=== PATIENT | female | born 1995 | race Caucasian/White ===

== ENCOUNTER 2019-01-03 02:01 | Inpatient (IN) | payer OTHER ==
[2019-01-03] VITALS (8 sets, daily range): BP systolic 11–118; BP diastolic 53–78; Ht 152.4 cm; Wt 83.1 kg
[~2019-01-03] VITALS: Ht 152.4 cm; Wt 83.1 kg
--- NOTE | 2019-01-03 02:22 | NUR ---
PT C/O ROSETTE BUTTOCK PAIN X1 DAY. PT DESCRIBES PAIN 10/10 CRAMPING PAIN. PT STS THAT SHE HAD A "LIFT" DONE IN [place] X7 DAYS AGO. PT DENIES FEVER/CHILLS, N/V/D. AWAITING MSE. NAD NOTED AT THIS TIME.
--- NOTE | 2019-01-03 02:53 | NUR ---
MEDICATION ADMINISTERED PER MD ORDER FOR PAIN
[2019-01-03 03:02] LABS: BASOPHIL % 0.3 % (0-2)
[2019-01-03 03:04] LABS: CARBON DIOXIDE 28.2 mmol/L (21-32); CHLORIDE SERUM 103 mmol/L (98-107); CREATININE SERUM 0.7 mg/dL (0.6-1.0); GFR1 > 60 mL/min; GLUCOSE SERUM 97 mg/dL (74-106); POTASSIUM SERUM 3.8 mmol/L (3.5-5.1); SODIUM SERUM 142 mmol/L (136-145)
[2019-01-03 03:06] LABS: PLATELET COUNT 561 x10^3mcL (130-400)
[2019-01-03 03:09] LABS: ALBUMIN 2.3 g/dL (3.4-5.0); ALKALINE PHOSPHATASE 89 U/L (46-116); ALT/SGPT 28 U/L (14-59); AST/SGOT 13 U/L (15-37); BILIRUBIN TOTAL 0.28 mg/dL (0.20-1.00); TOTAL PROTEIN, SERUM 6.7 g/dL (6.4-8.2)
--- NOTE | 2019-01-03 03:15 | NUR ---
PT C/O PAIN AT IV SITE. IV IN R AC D/C'ED, 20G IV PLACED IN L AC BY VIELKA HOGUE
[2019-01-03 03:16] LABS: rbc morphology (normal/abnorm) ABNORMAL (NORMAL)
--- NOTE | 2019-01-03 03:35 | NUR ---
LITER BOLUS AND IV ABX STARTED PER MD ORDER
--- NOTE | 2019-01-03 04:21 | NUR ---
MEDICATION ADMINISTERED FOR PAIN PER MD ORDER
--- NOTE | 2019-01-03 04:23 | NUR ---
PT AWAKE AND ALERT, LAYING IN POSITION OF COMFORT. PT C/O 10/29 PAIN, MEDICATION ADMINISTERED PER MD ORDER. VSS, RESPS E/U, NAD NOTED AT THIS TIME. SPOUSE AT BEDSIDE. WILL CONTINUE TO MONITOR.
--- NOTE | 2019-01-03 04:30 | NUR ---
2ND NS BOLUS STARTED PER MD ORDER
--- NOTE | 2019-01-03 04:33 | NUR ---
PT TAKEN TO CT VIA BLUE
--- NOTE | 2019-01-03 05:31 | NUR ---
BLOOD TRANSFUSION STARTED AT 50ML/HR PER MD ORDER. ALISHA RN AT BEDSIDE FOR 2 RN CHECKS. WILL REMAIN AT BEDISDE TO MONITOR FOR RXN.
--- NOTE | 2019-01-03 05:48 | NUR ---
NO RXN TO BLOOD TRANSFUSION PRESENT. INCREASED RATE TO RUN OVER 1HR, 300ML/HR
[2019-01-03 06:05] LABS: microscopic required? YES; urine erythrocyte 2+ (NEGATIVE)
--- NOTE | 2019-01-03 06:16 | NUR ---
REPORT GIVEN TO BROOK HOGUE
[2019-01-03 06:18] LABS: AMPHETAMINE QUAL UR NONE DETECTED (See below)
[2019-01-03 06:27] LABS: MAGNESIUM 2.1 mg/dL (1.8-2.4)
[2019-01-03 06:34] LABS: T3 TOTAL 0.79 ng/mL
[2019-01-03 06:35] LABS: FREE T4 1.3 ng/dL (0.76-1.46); FREE THYROXINE INDEX 3.5 ug/dL (1.4-4.5); T4(THYROXINE) 9.5 ug/dL (4.7-13.3)
--- NOTE | 2019-01-03 06:45 | NUR ---
REC'D PT FROM ED VIA [facility] ACCOMPANIED BY RN AND MALE GUEST. AMBULATED FROM [facility] TO BED BY SELF. BLOOD TRANSFUSION COMPLETED. VSS BUT TACHYCARDIC. NO ADVERSE EFFECTS NOTED. NS FLUSHING @ 100 ML/HR TO LAC. RAC INFUSING NS @ 1000 ML/HR AND VANCO @ 130 ML/HR. TELE 4, ST. C/O L BUTTOCK PAIN 8/10, ACHING. S/P LIPOSUCTION WITH GLUTEAL IMPLANTS 1 WEEK AGO. ECCHYMOSIS TO ROSETTE BUTTOCKS, ROSETTE BACK OF ARMS, AND R NECK. SÁNCHEZ/ABRASIONS SCATTERED TO BACK. PICTURES OBTAINED. ORIENTED TO DEVICES AND SURROUNDINGS. CALL LIGHT WITHIN REACH, BED AT LOWEST POSITION. WILL ENDORSE TO DAY NURSE.
--- NOTE | 2019-01-03 08:45 | NUR ---
ARRIVED FROM ED AT 0645. AAO TIMES 4. BOYFRIEND PRESENT, SUPPORTIVE. TELE #4 ST 113. LUNGS CTA. NO SOB. O2 SAT ON RA 93%. BS'S ACTIVE TIMES 4. DUNCAN WITH PAINFUL BILATERAL BUTTOCKS WITH MOVEMENT. BILATERAL BUTTOCKS EDEMA AND PAIN, LEFT > RIGHT. SHE ALSO HAD BILATERAL BREAST IMPLANTS DONE IN [place], THEY ARE CDI. ON BUTTOCKS, SHE HAS VARIOUS SMALL HEALED INCISION AREAS, CDI. PERIPHERAL PULSES PALPABLE. 1 UNITS OF PRBC WAS INFUSING UPON ARRIVAL AND FINISHED, THE JAVA INTEGRATION DEVELOPER RN COMPLETED IT. VS'S STABLE. C/O PAIN 10/29, GAVE NORCO PO ORDERED AT 0804.
[2019-01-03 09:41] LABS: CALCIUM 7.2 mg/dL (8.5-10.1); CARBON DIOXIDE 27.5 mmol/L (21-32); CHLORIDE SERUM 109 mmol/L (98-107); CREATININE SERUM 0.6 mg/dL (0.6-1.0); GFR1 > 60 mL/min; GLUCOSE SERUM 95 mg/dL (74-106); PHOSPHOROUS 3.9 mg/dL (2.5-4.9); POTASSIUM SERUM 3.9 mmol/L (3.5-5.1); SODIUM SERUM 144 mmol/L (136-145)
[2019-01-03 09:45] LABS: BASOPHIL % 0.1 % (0-2)
[2019-01-03 09:46] LABS: PLATELET COUNT 473 x10^3mcL (130-400); RED CELL DISTRIBUTION WIDTH 18.5 % (11.5-14.5)
[2019-01-03 10:02] LABS: rbc morphology (normal/abnorm) ABNORMAL (NORMAL)
[2019-01-03 14:21] LABS: BASOPHIL % 0.1 % (0-2)
[2019-01-03 14:33] LABS: PLATELET COUNT 445 x10^3mcL (130-400); RED CELL DISTRIBUTION WIDTH 18.7 % (11.5-14.5)
[2019-01-03 14:47] LABS: rbc morphology (normal/abnorm) ABNORMAL (NORMAL)
--- NOTE | 2019-01-03 17:22 | NUR ---
PRBC STARTED AT 1701. VS'S STABLE. NO SOB. NO TRANSFUSION REACTIONS NOTED. 15 MINUTES AFTER START OF PRBC VS'S STABLE. NO C/O PAIN. IV SITE RFA CDI.
--- NOTE | 2019-01-03 18:16 | NUR ---
AAO TIMES 4. TELE # 4 SR. VS'S STABLE. NO C/O PAIN. NO SOB. UNIT OF PRBC INFUSING, NO TRANSFUSION REACTIONS NOTED. IV SITE RFA CDI. COOPERATIVE. HER BOYFRIEND AND MOTHER PRESENT, WE ARE WAITING FOR SURGEON Lucía OH TO CONSULT WITH HER. SHE IS SLEEPING OFF AND ON, SHE DENIES PAIN.
--- NOTE | 2019-01-03 19:45 | NUR ---
AWAKE AND VERBALLY RESPONSIVE. ABLE TO APOLINAR NEEDS KNOWN. SKIN WARM AND DRY TO TOUCH. PAIN LEVEL AT THIS TIME 5/10, JUST GIVEN NORCO BY AM RN , MOTHER AT BEDSIDE VERY SUPPORTIVE OF PATIENT'S CURRENT PLAN OF CARE. IS UNIT OF PRBC ONGOIMG, NO S/S OF ADVERSE REACTION NOTED. CALL LIGHT WITHIN REACH AT ALL TIMES.
--- NOTE | 2019-01-03 19:54 | NUR ---
DR POWELL AT BEDSIDE EXPLAINING TO PATIENT/MOTHER , PT WILL HAVE ULTRASOUND GUIDED NEEDLE ASPIRATION LEFT BUTTOCK COLLECTION/ABSCESS, PATIENT WILL SGIN CONSENT IN AM BEFORE THE PROCEDURE,
--- NOTE | 2019-01-03 20:30 | NUR ---
PATIENT C/O SEVERE PAIN AT THE LEFT BUTTOCK, ALSO WITH CHEST PAIN, DR GUSMAN MADE AWARE WITH ORDERS GIVEN AND NOTED. EKG WAS ORDERED, RT MADE AWARE. MORHINE 2MG IVP GIVEN FOE SEVERE PAIN ON SCALE 10/10. ASSISTED IN REPOSITIONING TO SIDE WITH PILLOWS FOR SUPOORT.
--- NOTE | 2019-01-03 20:30 | NUR ---
I1ST UNIT PRBC COMPLETED, NO ADVERSE REACTION NOTED.
--- NOTE | 2019-01-03 21:40 | NUR ---
PATIENT CLAIMED WITH TOTAL RELIEF , PAIN LVEL AT THIS TIME, ABLE TO DOZE ON AND OFF. URINE SPECIMEN COLLECTED FOR URINE CULTURE AND SENT TO LAB. KEPT CLEAN AND DRY.
--- NOTE | 2019-01-03 21:45 | NUR ---
TROPONIN LEVEL=0.075, DR GUSMAN MADE AWARE. WILL CONTINUE TO MONITOR.
[2019-01-03 22:31] LABS: BASOPHIL % 0 % (0-2); PLATELET COUNT 445 x10^3mcL (130-400); RED CELL DISTRIBUTION WIDTH 24.4 % (11.5-14.5)
[2019-01-03 22:40] LABS: rbc morphology (normal/abnorm) ABNORMAL (NORMAL)
--- NOTE | 2019-01-03 23:25 | NUR ---
2ND UNIT PRBC STARTED AFTER VEIRFICATION WITH ANOTHER RN. IV ACCESS INTACT AND PATENT. NO REDNESS NOTED AT THE IV SITE.
[2019-01-04 03:00] VITALS: BP 105/64
--- NOTE | 2019-01-04 03:00 | NUR ---
2ND UNIT PRBC COMPLETED, NO APPARENT BLOOD TRABNSFUSION REACTION NOTED. WILL CONTINUE TO MONITOR.
[2019-01-04 05:00] VITALS: BP 126/76
--- NOTE | 2019-01-04 06:29 | NUR ---
TEMP-100.6F, COOLING MEASURES RENDERED. DR GUSMAN MADE AWARE, TYLENOL 650MG PO PRN MEDICATION. MAINTAINED NPO AFTER MIDNIGHT FOR POSSIBLE US GUIDED NEEDLE ASPIRATION LEFT BUTTOCK COLLECTION/ABSCESS BY REDILOGIST. CONTINUES ON ATB IVPB WITHOUT ADVERSE REACTION NOTED. KEPT CLEAN AND DRY.
[2019-01-04 07:54] LABS: BASOPHIL % 0 % (0-2); PLATELET COUNT 459 x10^3mcL (130-400); RED CELL DISTRIBUTION WIDTH 23.4 % (11.5-14.5)
[2019-01-04 07:56] LABS: rbc morphology (normal/abnorm) ABNORMAL (NORMAL)
[2019-01-04 08:10] LABS: CALCIUM 7.3 mg/dL (8.5-10.1); CARBON DIOXIDE 25.9 mmol/L (21-32); CHLORIDE SERUM 106 mmol/L (98-107); CREATININE SERUM 0.8 mg/dL (0.6-1.0); GFR1 > 60 mL/min; GLUCOSE SERUM 119 mg/dL (74-106); MAGNESIUM 1.7 mg/dL (1.8-2.4); PHOSPHOROUS 3.4 mg/dL (2.5-4.9); POTASSIUM SERUM 3.2 mmol/L (3.5-5.1); SODIUM SERUM 140 mmol/L (136-145)
--- NOTE | 2019-01-04 08:35 | NUR ---
AAO TIMES 4. TELE # 4 SR 96. LUNGS CTA. NO SOB. O2 SAT ON RA 95%. BS'S ACTIVE TIMES 4. DUNCAN STRONG, WITH PAINFUL BUTTOCKS WITH MOVEMENT, LEFT GREATER THAN RIGHT. EDEMA TO LEFT BUTTOCKS GREATER ON LEFT THAN RIGHT FROM RECENT BILATERAL BUTTOCK COSMETIC SURGERY. PERIPHERAL PULSES PALPABLE. TAPE/DRESSINGS TO BILATERAL NIPPLES FROM RECENT BREAST IMPLANTS CDI. VARIOUS HEALING SMALL SCABS TO UPPER, MIDDLE AND LOWER BACK FROM RECENT LIPOSUCTION. ERYTHEMA AND ECHYMOSIS TO RIGHT SIDE OF NECK CLOSE TO JAW LINE FROM LIPOSUCTION. NO EDEMA. BLE.
[2019-01-04 08:40] VITALS: BP 96/54
[2019-01-04 13:10] VITALS: BP 96/55
[2019-01-04 17:21] VITALS: BP 96/57
--- NOTE | 2019-01-04 18:29 | NUR ---
AAO TIMES 4. FAMILY PRESENT,SUPPORTIVE. TELE # 4 SR. NO C/O PAIN. NO SOB. VS'S STABLE. IV SITE RFA PAINFUL, STARTING NEW IV TO ANOTHER SITE. AMBULATORY TO BRP, ABLE TO USE TOILET TODAY, SHE SITS VERY CAREFULLY SHE STATES. MOTHER PRESENT, SUPPORTIVE.
--- NOTE | 2019-01-04 19:35 | NUR ---
RECEIVED AWAKE IN BED, ALERT AND VERBALLY RESPONISVE. ABLE TO MAKE NEEDS KNOWN. ON TELE #[address] AT 105/MIN. DENIES ANY PAIN/DISCOMFORT AT THIS TIME. FAMILY AT BEDSIDE VERY SUPPORTIVE OF COSME'S CURRENT PLAN OF CARE. PLACED CALL LIGHT WITHIN REACH. WILL CONTINUE TO MONITOR.
[2019-01-04 20:35] VITALS: BP 116/70
--- NOTE | 2019-01-04 20:55 | NUR ---
C/O LEFT BUTTOCK PAIN ON SCALE 6/10, NORCO 7.5MG ITAB GIVEN PRN MEDICATION. COOLING MEASURES RENDERED FOR TEMP 100 F. ASSISTED IN REPOSITIONING FOR COMFORT. ORAL FLUIDS ROLERATING WELL.
--- NOTE | 2019-01-05 00:10 | NUR ---
EYES CLOSED, NO FACIAL GRIAMCING NOTED. RESPIRATION EVEN AND UNLABORED. NO S/S OF PAIN/DISCOMFORT. CONTINUES ON ATB IVPB WITHOUT ADVERSE REACTION NOTED. KEPT CLEAN AND DRY.
[2019-01-05 05:11] VITALS: BP 118/75
--- NOTE | 2019-01-05 06:21 | NUR ---
C/O SEVERE LEFT BUTTOCK PAIN ON SCALE 10/10, MORPHINE 2MG IVP PRN MEDICATION , ASSISTED IN REPOSITIONING FOR COMOFRT. KEPT CLEAN AND DRY. ALL NEEDS ATTEDNED.
[2019-01-05 06:37] VITALS: BP 119/75
[2019-01-05 06:45] LABS: BASOPHIL % 0.3 % (0-2)
[2019-01-05 06:46] LABS: CALCIUM 7.4 mg/dL (8.5-10.1); CARBON DIOXIDE 26.9 mmol/L (21-32); CHLORIDE SERUM 108 mmol/L (98-107); CREATININE SERUM 0.6 mg/dL (0.6-1.0); GFR1 > 60 mL/min; GLUCOSE SERUM 89 mg/dL (74-106); MAGNESIUM 1.9 mg/dL (1.8-2.4); PHOSPHOROUS 3.4 mg/dL (2.5-4.9); POTASSIUM SERUM 3.7 mmol/L (3.5-5.1); SODIUM SERUM 144 mmol/L (136-145)
[2019-01-05 06:55] LABS: PLATELET COUNT 476 x10^3mcL (130-400); RED CELL DISTRIBUTION WIDTH 23.8 % (11.5-14.5)
--- NOTE | 2019-01-05 08:15 | NUR ---
PT C/O PAIN TO BUTTOCK MEDICATED WITH NORCO PO PER EMAR FOR PAIN 6/10 TO BUTTOCK. RECEIVED A CALL FROM RADIOLOGY MADE AWARE PT WILL BE PICKED UP IN 30 MIN TO BE TAKEN DOWN FOR PROCEDURE. CALL LIGHT IN REACH NEEDS ATTENDED TO. FAMILY AT BEDSIDE MADE AWARE.
[2019-01-05 08:43] VITALS: BP 120/77
--- NOTE | 2019-01-05 09:02 | NUR ---
PT TAKEN DOWN TO RADIOLOGY AT THIS TIME FOR PROCEDURE. LEFT FREE OF ANY APPARENT DISTRESS [facility]
--- NOTE | 2019-01-05 10:30 | NUR ---
PT BACK FROM RADIOLOGY S/P US GUIDED IR DRAINAGE OF LT BUTTOCK. RECEIVED PT IN PRONE POSITION, A/A/OX4. DENIES ANY PAIN AT SITE, PER REPORT RECEIVED LOCAL ANESTHESIA. PT DENIES ANY N/V AT THIS TIME. LT BUTTOCK NOTED WITH BANDAID MIDD BUTTOCK WITH SOME ERRYTHEMA SORROUNDING AREA. MILD SEROUSANGUINOUS DRAINAGE TO BANAID NOTED. CALL LIGTH IN REACH NEEDS ATTENDED TO.
--- NOTE | 2019-01-05 11:30 | NUR ---
PT RESTING AT THIS TIME. DENIES ANY DISCOMFORT. STATED PROCEDURE AREA STILL NUMB AT THIS TIME. SITE CK NO DRAINAGE NOTED. CALL LIGHT IN REACH NEEDS ATTENDED TO.
[2019-01-05 12:02] VITALS: BP 115/70
[2019-01-05 16:33] VITALS: BP 125/78
--- NOTE | 2019-01-05 16:49 | NUR ---
PT C/O PAIN TO LT BUTTOCK 5/10, MEDICATED WITH NORCO PO ORDERED. CONT TO MONITOR.
--- NOTE | 2019-01-05 18:43 | NUR ---
PT RESTING AT THIS TIME. REPORTED SOME IMPROVEMENT WITH PAIN. S/P KNEEDLE ASPIRATION TO LT BUTTOCK, NO DRAINAGE NOTED. FAMILY REMAINS AT BEDSIDE. CALL LIGHT IN REACH NEEDS ATTENDED TO.
[2019-01-05 19:28] VITALS: BP 114/68
--- NOTE | 2019-01-05 19:33 | NUR ---
RECEIVED PT FROM DAY SHIFT RN. PT AAOX4. DENIES UNDERWOOD/DIZZINESS. TELE #4 ST HR 122. PT DENIES CHEST PAIN/PRESSURE. BREATHING EVEN AND UNLABORED, NO SOB NOTED. IV LFA PATENT, INFUSING WELL. ECCHYMOSIS NOTED THROUGHOUT THE BODY. PT REPORTS SOME DISCOMFORT ON BUTTOCKS REGION. EDEMA NOTED TO BUTTOCKS. PT AMBULATORY. ABD SOFT/ROUND, ACTIVE BOWEL SOUNDS. DENIES ABD PAIN/N/V. NO SIGNS OF DISTRESS. CALL BUTTON WITHIN REACH. SAFETY PRECAUTIONS IN PLACE. FAMILY AT BEDSIDE. WILL CONTINUE TO MONITOR.
--- NOTE | 2019-01-05 21:01 | NUR ---
PT REPORTED HAVING PAIN ON HER BUTTOCKS 8/10. PAIN MEDICATION GIVEN PER EMAR. CALL BUTTON WITHIN REACH. SAFETY PRECAUTIONS IN PLACE. WILL CONTINUE TO MONITOR.
--- NOTE | 2019-01-05 23:40 | NUR ---
PT HR SUSTAINING IN 140'S. PT USING THE BATHROOM, ASYMOTOMATIC. NO SIGNS OF DISTRESS. HR TO 130 WHEN BACK IN BED. WILL MONITOR.
--- NOTE | 2019-01-06 00:30 | NUR ---
PT REPORTED TO HAVE MINIMAL VAGINAL BLEEDING, PER PT HAD IUD PLACED LAST WEEK AND HER MENSTRAUL CYLCE AT THE END OF THE MONTH. DR SURESH MADE AWARE AND WILL MONITOR.
--- NOTE | 2019-01-06 00:58 | NUR ---
PT REPORTED HAVING PAIN ON HER BUTTOCKS. MEDICATED PER EMAR. CALL BUTTON WITHIN REACH. SAFETY PRECAUTIONS IN PLACE. WILL CONTINUE TO MONITOR.
--- NOTE | 2019-01-06 02:16 | NUR ---
PT REPORTED HAVING 10/10 BUTTOCK PAIN. MEDICATED PER EMAR. REPOSITIONED IN BED. CALL BUTTON IN REACH. SAFETY PRECAUTIONS IN PLACE. WILL MONITOR.
[2019-01-06 05:16] VITALS: BP 111/68
[2019-01-06 06:14] LABS: BASOPHIL % 0.1 % (0-2)
--- NOTE | 2019-01-06 06:17 | NUR ---
PT SLEPT ON AND OFF THROUGOUT THE NIGHT WITH NO SIGNS OF DISTRESS. PT IV PATENT, INFUSING WELL. PT CONT TO REPORT PAIN ON HER BUTTOCKS AREA. MEDICATED PER EMAR WITH SOME RELIEF. PT AMBULATORY WITH BRP. DENIES ANY BLEEDING. NO SIGNS OF DISTRESS. CALL BUTTON WITHIN REACH. SAFETY PRECAUTIONS IN PLACE. WILL CONTINUE TO MONITOR AND ENDORSE CARE TO DAY SHIFT RN.
[2019-01-06 06:38] LABS: CALCIUM 7.8 mg/dL (8.5-10.1); CARBON DIOXIDE 27.5 mmol/L (21-32); CHLORIDE SERUM 105 mmol/L (98-107); CREATININE SERUM 0.6 mg/dL (0.6-1.0); GFR1 > 60 mL/min; GLUCOSE SERUM 94 mg/dL (74-106); POTASSIUM SERUM 3.9 mmol/L (3.5-5.1); SODIUM SERUM 141 mmol/L (136-145)
[2019-01-06 06:52] LABS: PLATELET COUNT 526 x10^3mcL (130-400); RED CELL DISTRIBUTION WIDTH 24.1 % (11.5-14.5)
--- NOTE | 2019-01-06 07:29 | NUR ---
PT AWAKE, NO SIGNS OF DISTRESS. CALL BUTTON WITHIN REACH. ENDORSED CARE TO DAY SHIFT RN, ALL QUESTIONS ADDRESSED.
--- NOTE | 2019-01-06 07:50 | NUR ---
RECEIVED PT IN BED A/A/OX4 DENIES UNDERWOOD. RESP EVEN AND UNLABORED WITH CLEAR BS BILAT. DENIES ANY SOB/CP/PRESSURE. NOTED LT BUTTOCK WITH ERRYTHEMA, WARM, HARD AND TENDER TO TOUCH. PT C/O DISCOMFORT TO SITE. S/P KNEEDLE ASPIRATION OF LT BUTTOCK ABSCESS. BANDAID IN PLACE. PT HAD LIPOSUCTION AND BREAST IMPLANTS AND BUTTOCK IMPLANTS OVER 10DAYS AGO OUTPATIENT. HAS ECCHYMOSIS TO BUE, HIPS/BUTTOCK, AND RT SIDE OF NECK. PT NOTED WITH DRY SCABS TO BACK AND UPPER BUTTOCK AREA. NOTED WITH STERI-STRIPS SORROUNDING BILAT NIPPLES, CDI. ABD SOFT, NONTEDER WITH ACTIVE BS X4. STOOL SOFTNER GIVEN PRN NO BM YET. VOIDING FREELY. AMBULATORY WITH SOME DISCOMFORT TO LT BUTTOCK AREA. CALL LIGHT IN REACH NEEDS ATTENDED TO.
[2019-01-06 08:47] VITALS: BP 120/70
--- NOTE | 2019-01-06 10:45 | NUR ---
IV TO LFA WAS INFILTARTED NEW IV INSERTED TO RH 22G, PT TOLERATED PROCEDURE WELL.
--- NOTE | 2019-01-06 11:07 | NUR ---
PT C/O PAIN TO LT BUTTOCK 6/10, MEDICATED WITH NORCO PO PER EMAR.
[2019-01-06 13:10] VITALS: BP 139/58
--- NOTE | 2019-01-06 15:27 | NUR ---
NOTIFIED OR THAT PT REPORTED DRINK SOME WATER BEFOR 3 PM AROUND 1430 OR SO AFTER SHE HAD BEEN NOTIFIED BY MD DATABASE DBA THAT SX HAD BEEN POSTPONE UNTIL TOMORROW MORNING AND PT COULD HAVE DINNER JUST NPO AFTER MIDNIGHT.
[2019-01-06 16:10] VITALS: BP 124/82
--- NOTE | 2019-01-06 16:32 | NUR ---
NOTIFIED BY JAVA SOFTWARE ARCHITECT THAT PT HAD TEMP 100.1. TEMP RECHECKED AND WAS 101 ORAL. HISTORIOGRAPHY TEACHER WAS NOTIFIED AND AND ORDER FOR TORADOL WAS OBTAINED AND PT WAS MEDICATED PER EMAR. SINCE PT WAS NPO FOR SX PROCEDURE UNABLE TO GIVE ORAL TYLENOL. BLOOD BANK CALLED BLOOD READY BUT UNABLE TO GIVE AT THIS TIME WITH ELEVATED TEMP. OR WAS CALLED AND NOTIFIED AWARE BLOOD NOT STARTED YET.
--- NOTE | 2019-01-06 17:00 | NUR ---
STARTED STAT ORDER OF ONE UNIT OF PRBC ORDERED BY DR. POWELL. PT MADE AWARE OF POSSIBLE S/SX OF BLOOD TRANSFUSION REACTION. PT VERBALIZED THIS WAS HER 4TH UNIT THIS ADMISSION AND WAS AWARE OF REACTION S/SX. BLOOD STARTED AT 50ML/HR AT THIS TIME. CONT TO MONITOR PATIENT.
--- NOTE | 2019-01-06 17:18 | NUR ---
AFTER 15 MIN VSS, T-99.4, HR118, B/P-114/77, RR-18, O2SAT 95%. NO VISIBLE OR REPORTED ADVERSE EFFECT NOTED. BLOOD TRANSFUSION RATE INCREASED TO 120ML/HR. FAMILY REMAINS AT BEDSIDE.
--- NOTE | 2019-01-06 18:05 | NUR ---
MECHANICAL ENGINEERING COOP AT BEDSIDE. PT TRANSPORTED TO OR FOR PROCEDURE WITH ONGOING BLOOD TRANSFUSION. PT HAS DOSE OF VANCO DUE AT 1800. SENT DOWN WITH PT OR NURSE WAS AWARE OF MEDICATION BEING SENT DOWN AND DUE TIME. PT LEFT FLOOR ACCOMPANIED BY MOTHER AND SISTER FREE OF ANY APPARENT DISTRESS. CALL LIGHT IN REACH NEEDS ATTENDED TO.
--- NOTE | 2019-01-06 20:30 | NUR ---
PATIENT RECEIVED FROM OR S/P I&D FO ABSCESS AND DEBRIDEMENT OF LEFT BUTTOCKS. AWAKE, ALERT, ORIENTED X4. RESPIRATION EVEN AND UNLABORED, ON O2 2L PER NASAL CANNULA. DRY AND INTACT DRESSING TO LEFT BUTTOCKS NOTED. DENIES PAIN AT THIS TIME. ONGOING VANCO IV AT THE LEFT AC INFUSING WELL. ECCHYMOSIS TO BUE/BILAT HIPS AND RT SIDE OF NECK, SCATTERED HEALING DRY SCABS TO BACK/ LOWER BACK AND BUTTOCKS, BILAT BREAST WITH STERI-STRIPS AROUND BREAST, HANSEL NOTED. PATIENT S/P LIPOSUCTION AND BREAST AUGMENTATION X10 DAYS AGO. VOIDING FREELY WITHOUT DIFFICULTY. WILL CONTINUE TO MONITOR.
[2019-01-06 20:40] VITALS: BP 134/85
[2019-01-06 22:54] LABS: BASOPHIL % 0.1 % (0-2)
[2019-01-06 22:56] LABS: PLATELET COUNT 570 x10^3mcL (130-400); RED CELL DISTRIBUTION WIDTH 24.5 % (11.5-14.5)
[2019-01-06 23:03] LABS: rbc morphology (normal/abnorm) ABNORMAL (NORMAL); target cell (codocyte) 1+
[2019-01-07 05:38] VITALS: BP 112/70
--- NOTE | 2019-01-07 06:02 | NUR ---
PATIENT RESTING IN BED. RESPIRATION EVEN AND UNLABORED, ON ROOM AIR. ONGOING 0.9% NS AT 100 CC/HR INFUSING WELL. COMPLAINED OF PAIN ON L BUTTOCKS, PS 10/10. MEDICATED WITH NORCO 7.5/325 MG PO ORDERED. DRESSING TO LEFT BUTTOCKS DRY AND INTACT. ASSISTED WITH NEEDS. SAFETY OBSERVED. PLACED BED IN THE LOWEST POSITION. PLACED CALL LIGHT WITHIN REACH AT ALL TIMES.
[2019-01-07 06:53] LABS: RED CELL DISTRIBUTION WIDTH 24.8 % (11.5-14.5)
[2019-01-07 06:54] LABS: BASOPHIL % 0 % (0-2)
[2019-01-07 07:00] LABS: PLATELET COUNT 544 x10^3mcL (130-400)
[2019-01-07 08:38] VITALS: BP 118/69
--- NOTE | 2019-01-07 08:45 | NUR ---
AAO TIMES 4. MED SURG PATIENT. PLEASANT, COOPERATIVE. LUNGS CTA. NO SOB. O2 SAT ON 2L NC 96%. BS'S ACTIVE TIMES 4. DUNCAN STRONG. LEFT BUTTOCK EDEMA. LEFT BUTTOCK DRESSING CDI. PERIPHERAL PULSES PALPABLE. NO EDEMA. IV SITE LAC PATENT, CDI.
[2019-01-07 16:24] VITALS: BP 116/82
--- NOTE | 2019-01-07 17:46 | NUR ---
PRE MEDICATED WITH NS 4 MG IVP AT 1604. CHANGED DRESSING TO LEFT BUTTOCK AT 1650. REMOVED PACKING TO LEFT BUTTOCK WOUND. NO SIGNS OF PIRULENCE, MODERATE AMOUNT OF SANGUINOUS DRAINAGE. WOUND BED GRANULATED. PACKED WITH BULKY KERLIX ROLL WET WITH MODERATE AMOUNT OF NORMAL SALINE, APPLIED FOUR 4"X4" GAUZE THEN AN ABD PAD. DRESSING CDI.
--- NOTE | 2019-01-07 17:59 | NUR ---
AAO TIMES 4. MED SURG PATIENT. DRESSING TO LEFT BUTTOCK CDI. SCD BLE. LAC IV SITE CDI. COOPERATIVE AND PLEASANT. NO C/O PAIN. NO SOB. ON PHONE, TEXTING.
--- NOTE | 2019-01-07 19:05 | NUR ---
REPORT RECEIVED FROM DAY SHIFT RN. PATIENT WAS SEEN AND IS RESTING COMFORTABLY IN BED WITH FAMILY AT BEDSIDE. NO DSITRESS NOTED. BREATHING EVEN AND UNLABORED ON ROOM AIR. NO SOB OR RESP DISTRESS NOTED. DENIES CHEST PAIN/PRESSURE. NO C/O PAIN. IV TO THE LAC INFUSING WELL. PATENT AND INTACT. NO REDNESS OR SWELLING NOTED. DRESSING TO THE LEFT BUTTOCK IN PLACE, CDI. ABD BINDER IN PLACE WELL. KPAD AT BEDSIDE. PATIENT DOES NOT WANT TO USE KPAD TA THIS TIME. COMFORT AND SAFETY MEASURES IN PLACE. BED IS LOCKED AND IN THE LOWEST POSITION. SIDE RAILS UP X2. CALL LIGHT IS WITHIN REACH. WILL CONTINUE TO MONITOR.
--- NOTE | 2019-01-07 20:30 | NUR ---
C/O 7/10 PAIN IN LEFT BUTTOCK. ADMINISTERED PRN NORCO PRESCRIBED. NO DISTRESS NOTED. MEDICATION EDUCATION GIVEN. BREATHING EVEN AND UNLABORED. SAFETY MEASURES IN PLACE. CALL LIGHT IS WITHIN REACH. WILL CONTINUE TO MONITOR.
[2019-01-07 20:33] VITALS: BP 115/69
--- NOTE | 2019-01-07 21:23 | NUR ---
PATIENT AMBULATING AROUND THE HALLWAY W/ MOTHER.
--- NOTE | 2019-01-08 00:15 | NUR ---
AWAKE AND IN BED. NO DISTRESS NOTED. BREATHING EVEN AND UNLABORED ON ROOM AIR. NO SOB OR RESP DISTRESS NOTED. IVF INFUSING WELL. PATENT AND INTACT. DENIES PAIN. SAFETY MEASURES IN PLACE. CALL LIGHT IS WITHIN REACH. WILL CONTINUE TO MONITOR
--- NOTE | 2019-01-08 02:35 | NUR ---
AWAKE IN BED USING PHONE. NO DISTRESS NOTED. BREATHING EVEN AND UNLABORED. VANCO INFUSING WELL. DENIES PAIN AT THIS TIME. SAFETY MEASURES IN PLACE. CALL LIGHT IS WITHIN REACH. WILL CONTINUE TO MONITOR.
[2019-01-08 05:03] VITALS: BP 121/80
--- NOTE | 2019-01-08 05:35 | NUR ---
C/O 5/10 PAIN IN LEFT BUTTOCK. PRN NORCO ADMINISTERED PRESCRIBED. MED EDUCATION GIVEN. NO DISTRESS NOTED. BREATHING EVEN. CALL LIGHT IS WITHIN REACH. WILL CONTINUE TO MONITOR.
--- NOTE | 2019-01-08 05:57 | NUR ---
RESTED IN SHORT INTERVALS THROUGHOUT THE NIGHT. NO ACUTE CHANGES NOTED. BREATHING EVEN AND UNLABORED. NO SOB NOTED. DENIES CHEST PAIN. C/O PAIN X2 AND MEDICATED W/ PRN NORCO WITH GOOD RELIEF. OFFERED PRN MORPHINE, BUT PATIENT STATES "I DON'T WANT TO TAKE MORPHINE ANYMORE. I DON'T LIKE HOW IT MAKES ME FEEL". IV TO THE LAC INFUSING WELL. PATENT AND INTACT. LEFT BUTTOCK DRESS, CDI. COMFORT AND SAFETY MEASURES IN PLACE. CALL LIGHT IS WITHIN REACH. WILL ENDORSE CARE TO DAY SHIFT RN.
[2019-01-08 06:37] LABS: CALCIUM 7.3 mg/dL (8.5-10.1); CARBON DIOXIDE 30.5 mmol/L (21-32); CHLORIDE SERUM 107 mmol/L (98-107); CREATININE SERUM 0.6 mg/dL (0.6-1.0); GFR1 > 60 mL/min; GLUCOSE SERUM 90 mg/dL (74-106); POTASSIUM SERUM 3.7 mmol/L (3.5-5.1); SODIUM SERUM 144 mmol/L (136-145)
[2019-01-08 06:40] LABS: BASOPHIL % 0.2 % (0-2)
[2019-01-08 07:10] LABS: PLATELET COUNT 721 x10^3mcL (130-400); RED CELL DISTRIBUTION WIDTH 25.3 % (11.5-14.5)
--- NOTE | 2019-01-08 08:03 | NUR ---
AAO TIMES 4. HER BOYFRIEND IS PRESENT. NO TELE. MED SURG ONLY. LUNGS CTA. NO SOB. O2 SAT ON RA 97%. BS'S ACTIVE TIMES 4. PERIPHERAL PULSES PALPABLE. NO EDEMA. COOPERATIVE, BUT CRYING THIS AM. SHE WANTS TO GO HOME. PERLA PHILIPPE.
[2019-01-08 08:29] VITALS: BP 128/84
--- NOTE | 2019-01-08 08:30 | NUR ---
PATIENT LEFT TO RADIOLOGY DEPARTMENT FOR US GUIDED THORACENTESIS. DRAINED OUTPUT OF 1100 ML. SEE VITAL SIGNS COMPUTER GRAPH.
--- NOTE | 2019-01-08 09:42 | NUR ---
I NOTIFIED DR. STORY OF PATIENT BP AND MEDICATIONS DUE. HE ONLY WANTS THE COZAAR GIVEN AND HOLD LASIX, COREG, HYDRAZALINE. DR. STORY ALSO ORDERED TESTS FOR OUTPUT FROM THORACENTESIS SUCH pH, GLUCOSE, LDH, PROTEIN, GRAM STAIN, CYTOLOGY, FUNGAL CULTURE, CULTURE AND SENSITIVITY, AND AFB SMEAR.
[2019-01-08 10:33] LABS: rbc morphology (normal/abnorm) ABNORMAL (NORMAL); schistocyte (helmet cell) 1+; target cell (codocyte) 1+; tear drop cell (dacryocyte) 1+
[2019-01-08] MEDS ORDERED: CLEOCIN HCL150 MG PO (11:13)
[2019-01-08] MEDS ORDERED: TRAMADOL HCL50 MG PO (11:13)
--- NOTE | 2019-01-08 11:19 | NUR ---
I SPOKE WITH JOSE PHARMACIST, THE PATIENTS BUN AND CREAT ARE NORMAL, AND THERE WAS A VANCO TROUGH WAS DONE 3 DAYS AGO, SO THE NEXT ONE WONT BE ORDERED FOR ANOTHER 4 DAYS, IF SHE IS NOT DISCHARGED. ALETA PHARMACIST IS AWARE OF THE VANCO TROUGH OF 11.1 FROM 3 DAYS AGO.
[2019-01-08 13:42] VITALS: BP 128/84
--- NOTE | 2019-01-08 14:36 | NUR ---
LEFT BUTTOCK SURGICAL WOUND DRESSING CHANGE WITH PRIMARY RN, WOUND PHITO AND MEASUREMENT TAKEN. SURGICAL WOUND 100% GRANULATING TISSUE, WITH MODERATE AMOUNT OF SEROSANGINOUS DRAINAGE, NO ODOR, WOUND EDGE WELL DEFINED, ALEJANDRA WOUND SKIN DRY AND INTACT. WOUND CARE INSTRUCTIONS EXPLAINED TO PT. AND RECOMMEND PT. TO FOLLOW UP WITH PRIMARY PHYSICIAN 10-14 DAYS POST DISCHARGE, DISCHARGED WITH WOUND CARE SUPPLIES AND HOME HEALTH WOUND CARE. POC DISCUSSED WITH PRIMARY RN AND PT. PT. VERBALIZES UNDERSTANDING
--- NOTE | 2019-01-08 15:17 | NUR ---
JANICE WOUND CARE NURSE, CAME AND DID THE DRESSING CHANGE TO THE LEFT BUTTOCK, SEE HER NOTES. PHOTO WAS TAKEN, SEE PHOTO WITH MEASUREMENTS. PHOTOS WERE TAKEN OF HER BACK SMALL SCABS, RIGHT NECK ECHUMOSIS RESOLVED AND BILATERAL BREASTS WITH STERI STRIPS AROUND HER NIPPLES. THE TISSUE INSIDE THE WOUND TO HER LEFT BUTTOCK IS GRANULATED, NO PIRULENCE AND NO FOUL ODORS. IT WAS PACKED WITH MOIST FLUFFY BIG KERLIX AND ABD PLACED OVER. ALL WOUNDS HEALING WELL.
[2019-01-08 16:54] VITALS: BP 118/74
--- NOTE | 2019-01-08 17:13 | NUR ---
GAVE DISCHARGE INSTRUCTIONS AND PRESCRIPTION. DISCONTINUED SALINE LOCK ANGIO INTACT. I GAVE HER EXTRA DRESSING SUPPLIES. SHE IS AWARE TO FOLLOW UP WITH DR Lucía POWELL AND I GAVE HER HIS PHONE NUMBER. SHE KNOWS THE [facility] WILL CALL HER TONIGHT OR TOMORROW WITH APPOINTMENT TIMES FOR HER DRESSING CHANGE. SHE VERBALIZED "I UNDERSTAND" TO ALL INSTUCTIONS.
== END 2019-01-08 17:18 | disposition home health service (06) | DRG 853 ==
LOC: ED 02:01 → DU 05:44 → MU 05:44 → DU 06:49 → MU 01-07 04:28
PROVIDERS: Emergency Medicine; Surgery; ADMIT Internal Medicine
PROC: 0J993ZX Drainage of Buttock Subcutaneous Tissue and Fascia, Percutaneous Approach, Diagnostic (ICD-10-PCS; 2019-01-05)
PROC: 0KBP0ZZ Excision of Left Hip Muscle, Open Approach (ICD-10-PCS; principal; 2019-01-06 19:00)
DX: A41.9 Sepsis, unspecified organism (principal); M72.6 Necrotizing fasciitis; E43 Unspecified severe protein-calorie malnutrition; T81.42XA Infection following a procedure, deep incisional surgical site, initial encounter; L02.31 Cutaneous abscess of buttock; N39.0 Urinary tract infection, site not specified; B95.7 Other staphylococcus as the cause of diseases classified elsewhere; D50.9 Iron deficiency anemia, unspecified; F14.10 Cocaine abuse, uncomplicated; F12.10 Cannabis abuse, uncomplicated; F11.10 Opioid abuse, uncomplicated; Z68.25 Body mass index [BMI] 25.0-25.9, adult; Z97.5 Presence of (intrauterine) contraceptive device; Z98.82 Breast implant status; Y83.4 Other reconstructive surgery as the cause of abnormal reaction of the patient, or of later complication, without mention of misadventure at the time of the procedure; Y92.009 Unspecified place in unspecified non-institutional (private) residence as the place of occurrence of the external cause
CPT/HCPCS: 84439; G0378; J0330; J0696; J1170; J1200; J1885; J2001; J2270; J2405; J2543; J2704; J2710; J3010; J3370; J3490; J7030; J7050; J7120; P9016; Q0092; Q0163; Q9967